=== PATIENT | female | born 1945 | race Caucasian/White ===

== ENCOUNTER 2022-12-20 12:05 | Day surgery (SDC) | payer MEDICARE, BC ==
[2022-12-20] MEDS ORDERED: Sodium Chloride 0.9(Preservative Free) 10 ML IJ ONE (12:06)
[2022-12-20] MEDS ORDERED: Decadron 4 MG INJ IV ONE (12:06)
[2022-12-20] MEDS ORDERED: LIDOCAINE HCL 1% 50 MG/5 ML VL PF IJ ONE (12:06)
[2022-12-20] MEDS ORDERED: Depo-Medrol 40 MG/ML IM ONE (12:06)
[2022-12-20] MEDS ORDERED: DIPRIVAN 200 MG/20 ML IV ONE (14:09)
[2022-12-20] MEDS ORDERED: Lactated Ringers 1,000 ML IV ONE (14:37)
--- NOTE | 2022-12-20 16:42 | XRAY ---
Indication: Right L4-S1 transforaminal MEAGHAN. Intraoperative fluoroscopy provided for 25 seconds. 6 digital spot image submitted for interpretation demonstrates posterior needle tips projecting over the expected right L4 and L5 nerve roots. Small amount of contrast injected for needle tip placement. Correlate with intraoperative findings/report.
--- NOTE | 2022-12-20 16:42 | XRAY ---
Indication: Right piriformis injection. Intraoperative fluoroscopy provided for 11 seconds. Single digital spot image submitted for interpretation demonstrates posterior needle tip projecting over the expected right piriformis. Small amount of contrast injected for needle tip placement. Correlate with intraoperative findings/report.
--- NOTE | 2022-12-20 16:46 | XRAY ---
25 seconds of fluoroscopy was used in surgery for a right L4-S1 transforaminal MEAGHAN.
--- NOTE | 2022-12-20 16:47 | XRAY ---
11 seconds of fluoroscopy was used in surgery for a right piriformis injection.
== END 2022-12-20 14:50 | disposition home or self-care (01) ==
LOC: SDC-PAIN 12:05
PROVIDERS: ATTEND Psychiatry & Neurology Pain Medicine
DX: M54.16 Radiculopathy, lumbar region (principal); M79.18 Myalgia, other site; Z79.899 Other long term (current) drug therapy
CPT/HCPCS: 20552; 64483; 64484; 72100; 72170; 77002; 77003; 99100; J1030; J1100; J2001; J2704; Q9966

== ENCOUNTER 2024-01-30 10:11 | Day surgery (SDC) | payer MEDICARE, BC ==
[2024-01-30] MEDS ORDERED: Sodium Chloride 0.9(Preservative Free) 10 ML IJ ONE (10:12)
[2024-01-30] MEDS ORDERED: Decadron 4 MG INJ IV ONE (10:12)
[2024-01-30] MEDS ORDERED: DIPRIVAN 200 MG/20 ML IV ONE (11:41)
--- NOTE | 2024-01-30 13:45 | XRAY ---
Indication: Right L4-S1 transforaminal MEAGHAN. Intraoperative fluoroscopy provided for 22 seconds. 6 digital spot image submitted for interpretation demonstrates posterior needle tips projecting over the expected right L4 and L5 nerve roots. Small amount of contrast injected for needle tip placement. Correlate with intraoperative findings/report.
--- NOTE | 2024-01-30 13:53 | XRAY ---
22 seconds of fluoroscopy was used in surgery for a right L4-S1 transforaminal MEAGHAN.
== END 2024-01-30 12:22 | disposition home or self-care (01) ==
LOC: SDC-PAIN 10:11
PROVIDERS: ATTEND Psychiatry & Neurology Pain Medicine
DX: M54.16 Radiculopathy, lumbar region (principal)
CPT/HCPCS: 64483; 64484; 72100; 77003; J1100; J2704; Q9966